=== PATIENT | female | born 1940 | race Caucasian/White ===

== ENCOUNTER 2016-07-07 10:58 | Outpatient (CLI) | payer OTHER ==
[2013-11-05 04:48] VITALS: BMI 25.8
== END 2016-07-07 10:59 ==
LOC: AMBL 10:58
PROVIDERS: ATTEND Emergency Medicine
DX: R11.2 Nausea with vomiting, unspecified (principal); R19.7 Diarrhea, unspecified; K92.1 Melena; N39.0 Urinary tract infection, site not specified; R10.30 Lower abdominal pain, unspecified

== ENCOUNTER 2017-10-08 17:27 | Emergency (ER) | payer OTHER ==
[2017-10-08 17:45] VITALS: BP 167/77; TEMP 97.2; BMI 22.4
--- NOTE | 2017-10-08 18:06 | ED.PDOC ---
General ED Provider: Dr. CARITO SANCHEZ Chief Complaint: Bite Stated Complaint: wasp sting right hand edema of 3rd and 4th finger Time Seen by Physician: 17:30 Mode of Arrival: Walk-In Information Source: Patient Exam Limitations: No limitations Nursing and Triage Documentation Reviewed and Agree: Yes Does patient meet sepsis criteria?: Yes If yes, has appropriate treatment been initiated?: No System Inflammatory Response Syndrome: Not Applicable Sepsis Protocol: For patient's 13 years and over: Temp is 96.8 and below OR 101 and greater Pulse >90 BPM Resp >20/minute Acutely Altered Mental Status Are patient's symptoms suggestive of a new infection, such as: -Pneumonia -Skin, Soft Tissue -Endocarditis -UTI -Bone, Joint Infection -Implantable Device -Acute Abdominal Infection -Wound Infection -Meningitis -Blood Stream Catheter Infection -Unknown Trauma/Injury Complaint Exam - Bite Injury Complaint/Exam Location of Bite: right hand wasp sting Bite Occured: 2 hours ago the rings on 3rd and 4t finger needs to be cut Symptoms Are: Still present Initial Severity: Moderate Current Severity: Moderate Character: Reports: Puncture Aggravating: Reports: None Alleviating: Reports: None Associated Signs and Symptoms: Reports: Erythema, Swelling. Denies: Fever, Drainage, Lymphadenopathy, Numbness, Tingling, Limited ROM Related History: Reports: Unprovoked Animal Available for Observation: No Animal Control Notified: No Infection/Sepsis Risk Factors: Present: None Drainage: Present: None Review of Systems - Review Of Systems Constitutional: Reports: No symptoms Eyes: Reports: No symptoms Ears, Nose, Mouth, Throat: Reports: No symptoms Respiratory: Reports: No symptoms Cardiac: Reports: No symptoms GI: Reports: No symptoms : Reports: No symptoms Musculoskeletal: Reports: Other (edema of right hand ) Skin: Reports: No symptoms Neurological: Reports: No symptoms Endocrine: Reports: No symptoms Hematologic/Lymphatic: Reports: No symptoms All Other Systems: Reviewed and Negative Past Medical History - Past Medical History Previously Healthy: Yes Endocrine: Reports: None Cardiovascular: Reports: None Respiratory: Reports: None Hematological: Reports: None Gastrointestinal: Reports: None Genitourinary: Reports: None Neuro/Psych: Reports: None Musculoskeletal: Reports: None Cancer: Reports: None Last Menstrual Period: 1999 - Surgical History General Surgical History: Reports: None - Family History Family History: Reports: None - Social History Smoking Status: Former smoker Hx Substance Use: No Alcohol Screening: None - Immunizations Tetanus Shot up to Date: Yes Physical Exam - Physical Exam Appearance: Well-appearing, No pain distress, Well-nourished Eyes: WENDY, EOMI, Conjunctiva clear ENT: Ears normal, Nose normal, Oropharynx normal Respiratory: Airway patent, Breath sounds clear, Breath sounds equal, Respirations nonlabored Cardiovascular: RRR, Pulses normal, No rub, No murmur GI/: Soft, Nontender, No masses, Bowel sounds normal, No Organomegaly Musculoskeletal: Edema (right hand markedly swollen 3rd and4th digits ) Skin: Warm, Dry, Normal color Neurological: Sensation intact, Motor intact, Reflexes intact, Cranial nerves intact, Alert, Oriented Psychiatric: Affect appropriate, Mood appropriate Procedures - Additional Procedures Additional Procedures: Other (rings of the 3rd and 4th finger had to be cut due to edema of the involved fingers ) Critical Care Note - Critical Care Note Total Time (mins): 0 Course - Course Vital Signs: Temp Pulse Resp BP Pulse Ox 10/08/17 17:27 97.2 F L 84 16 167/77 H 95 Departure - Departure Time of Disposition: 18:07 Disposition: HOME SELF-CARE Discharge Problem: Wasp sting Qualifiers: Encounter type: initial encounter Instructions: Insect Bite or Sting (ED) Condition: Good Pt referred to PMD for follow-up: Yes IPMP verified?: No Additional Instructions: Please call your Family Physician as soon as possible to schedule a follow-up appointment. Allergies/Adverse Reactions: Allergies strawberry [Odell] Adverse Reaction (Verified 10/08/17 17:48) Sulfa (Sulfonamide Antibiotics) Adverse Reaction (Verified 10/08/17 17:48) Home Medications: Ambulatory Orders 1 [Unobtainable] 11/05/13
[2017-10-08] MEDS ORDERED: BENADRYL IM STA (18:08)
[2017-10-08] MEDS ORDERED: DECADRON 4 MG/ML SDV IM STA (18:08)
[2017-10-08] MEDS ORDERED: BENADRYL PO STA ×2 (18:09→18:12)
[2017-10-08] MEDS ORDERED: PREDNISONE PO STA (18:09)
== END 2017-10-08 18:30 | disposition home or self-care (01) ==
LOC: ED 17:27
DX: T63.461A Toxic effect of venom of wasps, accidental (unintentional), initial encounter (principal); R60.0 Localized edema; S60.442A External constriction of right middle finger, initial encounter; S60.444A External constriction of right ring finger, initial encounter; W49.04XA Ring or other jewelry causing external constriction, initial encounter
CPT/HCPCS: 99282

== ENCOUNTER 2018-06-09 11:24 | Emergency (ER) | payer OTHER ==
[2018-06-09 11:35] VITALS: BP 112/69; TEMP 98.5; BMI 20.3
--- NOTE | 2018-06-09 11:48 | ED.PDOC ---
General ED Provider: Dr. GUNNER PITT Chief Complaint: Syncope Stated Complaint: Feels weak and dizzy. Almost passed out especially when she stands up. Symptoms resolved when lying down. Has episodes where she spits up yellow phlebm Time Seen by Physician: 11:45 Mode of Arrival: Wheelchair Information Source: Patient Exam Limitations: No limitations Primary Care Provider: ADRIANA KRAMER Nursing and Triage Documentation Reviewed and Agree: Yes Does patient meet sepsis criteria?: No System Inflammatory Response Syndrome: Not Applicable Sepsis Protocol: For patient's 13 years and over: Temp is 96.8 and below OR 101 and greater Pulse >90 BPM Resp >20/minute Acutely Altered Mental Status Are patient's symptoms suggestive of a new infection, such as: -Pneumonia -Skin, Soft Tissue -Endocarditis -UTI -Bone, Joint Infection -Implantable Device -Acute Abdominal Infection -Wound Infection -Meningitis -Blood Stream Catheter Infection -Unknown Review of Systems - Review Of Systems Constitutional: Reports: Malaise Eyes: Reports: No symptoms Ears, Nose, Mouth, Throat: Reports: No symptoms Respiratory: Reports: Cough Cardiac: Reports: No symptoms GI: Reports: No symptoms : Reports: No symptoms Musculoskeletal: Reports: No symptoms Skin: Reports: No symptoms Neurological: Reports: No symptoms Endocrine: Reports: No symptoms Hematologic/Lymphatic: Reports: No symptoms All Other Systems: Reviewed and Negative Past Medical History - Past Medical History Previously Healthy: Yes Endocrine: Reports: None Cardiovascular: Reports: None Respiratory: Reports: None Hematological: Reports: None Gastrointestinal: Reports: None Genitourinary: Reports: None Neuro/Psych: Reports: None Musculoskeletal: Reports: None Cancer: Reports: None Last Menstrual Period: N/A - Surgical History General Surgical History: Reports: None - Family History Family History: Reports: None - Social History Smoking Status: Former smoker Hx Substance Use: No Alcohol Screening: None Physical Exam - Physical Exam Appearance: Well-appearing, Thin Ill-appearing: None Pain Distress: None Eyes: WENDY, EOMI, Conjunctiva clear ENT: Ears normal, Nose normal, Oropharynx normal Neck: Supple Respiratory: Airway patent, Breath sounds clear, Breath sounds diminished, Respirations nonlabored Cardiovascular: RRR, Pulses normal, No rub, No murmur GI/: Soft, Nontender, No masses, No Organomegaly, Bowel sounds hypoactive Musculoskeletal: Normal strength, ROM intact, No edema, No calf tenderness Skin: Warm, Dry, Normal color Neurological: Sensation intact, Motor intact, Reflexes intact, Cranial nerves intact, Alert, Oriented Psychiatric: Affect appropriate, Mood appropriate Interpretation - Radiology Interpretation Radiology Interpretation By: Radiologist Exam Interpreted: Portable CXR (RT MIDDLE AND LOWER LOBE HAZZINESS), CT Scan ( HEAD-WNL) Critical Care Note - Critical Care Note Total Time (mins): 0 Course - Course Hematology/Chemistry: 06/09/18 11:44 06/09/18 11:55 Orders, Labs, Meds: Lab Review 06/09/18 06/09/18 06/09/18 11:44 11:55 13:50 WBC 8.48 RBC 4.39 Hgb 13.4 Hct 39.9 MCV 90.9 MCH 30.5 MCHC 33.6 RDW Coeff of Marco 13.2 Plt Count 274 Immature Gran % (Auto) 0.4 Neut % (Auto) 72.6 Lymph % (Auto) 8.3 L Mason % (Auto) 18.0 H Eos % (Auto) 0.1 Baso % (Auto) 0.6 Immature Gran # (Auto) 0.0 Neut # (Auto) 6.2 Lymph # (Auto) 0.7 Mason # (Auto) 1.5 Eos # (Auto) 0.0 Baso # (Auto) 0.1 Sodium 134.5 Potassium 3.45 L Chloride 94.8 L Carbon Dioxide 30.0 Anion Gap 13.15 BUN 17.0 Creatinine 1.40 H Estimated GFR (MDRD) 36.00 BUN/Creatinine Ratio 12.14 Glucose 115.5 H Calcium 8.98 Magnesium 1.65 Total Bilirubin 0.65 AST 30.9 ALT 13.5 Alkaline Phosphatase 100.1 Total Creatine Kinase 39.5 Total Protein 7.64 Albumin 4.45 Globulin 3.19 Albumin/Globulin Ratio 1.39 Urine Color Yellow Urine Clarity Slightly Urine pH 5.5 Ur Specific [place] 1.025 Urine Protein 2+ Urine Glucose (UA) Negative Urine Ketones Negative Urine Blood Trace-lysed Urine Nitrite Negative Urine Bilirubin 1+ Urine Urobilinogen 0.2 Ur Leukocyte Esterase 2+ Urine Microscopic RBC 2-5 Urine Microscopic WBC 30-50 Ur Squamous Epith Cells Not present Ur Transition Epith Cell 2-5 Urine Bacteria 2+ Orders Category Date Time Status EKG-(ED ONLY) Stat CARDIO 06/09/18 11:44 Completed CBC W/ AUTO DIFF Stat LAB 06/09/18 11:44 Completed COMPREHENSIVE METABOLIC PANEL Stat LAB 06/09/18 11:55 Completed CPK [CREATINE KINASE] Stat LAB 06/09/18 11:55 Completed FLU A & B MOLECULAR [FLU A/B MOLECULAR] Stat LAB 06/09/18 14:20 Received MAGNESIUM Stat LAB 06/09/18 11:55 Completed UA [URINALYSIS C & S IF INDICATED] Stat LAB 06/09/18 13:50 Completed URINE CULTURE Stat LAB 06/09/18 13:50 Received CHEST, 1V AP ONLY Stat RADS 06/09/18 11:[address] HEAD W/O CONTRAST Stat RADS 06/09/18 13:16 Completed Vital Signs: Temp Pulse Resp BP Pulse Ox 06/09/18 11:24 98.5 F 65 20 112/69 94 L JASON Risk Score JASON Risk Score: Risk Score Odds of by 30D 0 0.1 (0.1-0.2) 1 0.3 (0.2-0.3) 2 0.4 (0.3-0.5) 3 0.7 (0.6-0.9) 4 1.2 (1.0-1.5) 5 2.2 (1.9-2.6) 6 3.0 (2.5-3.6) 7 4.8 (3.8-6.1) Departure - Departure Time of Disposition: 14:15 Disposition: STILL A PATIENT Discharge Problem: Dizziness, URI (upper respiratory infection), UTI (urinary tract infection) Discharge Problem: (Ruled Out): Acute UTI (urinary tract infection) Instructions: Upper Respiratory Infection (ED), Dizziness (ED) Condition: Good Pt referred to PMD for follow-up: Yes (1 WK) IPMP verified?: No Additional Instructions: STAY WELL DYDRATED TAKE ALL ANTIBIOTICS TAKE TYLENOL OR ADVIL FOR PAIN OR TEMPERATURE ELEVATION ABOVE 101 FOLLOW UP PCP 7-10 DAYS AVOID SUDDEN CHANGES IN POSITION, IF FEELING DIZZY SIT DOWN AND AVOID DRIVING Allergies/Adverse Reactions: Allergies strawberry [Garrison] Adverse Reaction (Verified 06/09/18 11:30) Sulfa (Sulfonamide Antibiotics) Adverse Reaction (Verified 06/09/18 11:30) Home Medications: Ambulatory Orders Gabapentin 100 mg PO TID 06/09/18 Nadolol 20 mg PO DAILY 06/09/18 Nitrofurantoin Monohyd/M-Cryst [Macrobid 100 mg Capsule] 100 mg PO BID #20 capsule 06/09/18 Pantoprazole Sodium [Protonix] 40 mg PO DAILY 06/09/18 Tramadol HCl [Ultram] 50 mg PO Q8H PRN 06/09/18 Triamterene/Hydrochlorothiazid [Triamterene-Hctz 37.5-25 mg Cp] 1 each PO DAILY 06/09/18 Disposition Discussed With: Patient Respiratory Complaint Exam - Respiratory Complaint/Exam Symptoms Are: Still present Timing: Intermittent Initial Severity: Moderate Current Severity: Mild Location: Throat Character: Reports: Productive cough Aggravating: Reports: None Alleviating: Reports: Upright position Associated Signs and Symptoms: Reports: Dizziness, URI, Nasal congestion Related History: Denies: Similar episode History of Healthcare-Acquired Pneumonia: No Related Surgical History: Reports: None Pulmonary Embolism Risk Factors: None Cardiac Risk Factors: Reports: None Pseudomonas Risk Factors: Reports: None Tuberculosis Risk Factors: Reports: None Status Asthmaticus Risk Factors: Reports: None Home Oxygen Use: No Recent Stress Test: No Recent Echo/LV Function: No Current Antibiotic Use: No Current Asthma Medication Use: No Respiratory Distress: None Inadequate Respiratory Effort: No Dysphagia Present: No Stridor Present: No JVD Present: No Retractions: Not Present Diminished Breath Sounds: Yes (RT LOWER CHES) Sinus Tenderness: None Grunting Respirations: No Kussmaul Respirations: No Differential Diagnoses: URI, Influenza Neurological Complaint Exam - Dizziness Complaint/Exam Onset: Gradual Symptoms Are: Resolved Timing: Intermittent Episodes Lasting: Seconds Initial Severity: Moderate Current Severity: Mild Character: Reports: Lightheaded, Weak, Dizzy Aggravating: Reports: Position change Alleviating: Reports: Rest, Lying down Associated Signs and Symptoms: Denies: Nausea, Vomiting, Diaphoresis, Tinnitus, Chest pain, Short of air, Palpitations, Unsteady gait, GI blood loss, Visual changes, Decreased oral intake, Change in medication, Change in diet, OTC meds, Loss of balance Cardiac Risk Factors: Reports: None CVA Risk Factors: Reports: None Related Surgical History: Reports: None JVD Present: No Carotid Bruit Present: No Nystagmus Present: No Gag Reflex Present: Yes Meningeal Signs Positive: No Focal Weakness: Present: None Focal Sensory Loss: Present: None Gait: Unsteady [id number]: Normal Findings Romberg Test Positive: No Babinski Sign: Negative Right, Negative Left Differential Diagnoses: Anxiety, Labyrinthitis, Vasovagal reaction
--- NOTE | 2018-06-09 13:43 | CT ---
EXAM: CT of the head without contrast History: Dizziness, unsteady gait, lightheaded Technique: Multiplanar CT images through the head were obtained without the administration of IV con trast Findings: The visualized paranasal sinuses and mastoid air cells are clear in general. No acute matthew varial abnormalities. Intracranially the ventricular and cisternal spaces are normal in size, shape and configuration for a patient of this age. No dominant mass or midline shift. No hydrocephalous. Atherosclerotic vascul ar calcifications. Periventricular and subcortical white matter hypodensities. No acute intracrania l hemorrhage or abnormal extraaxial fluid collections. Impression: 1. No acute intracranial process. 2. Chronic small vessel ischemic disease
--- NOTE | 2018-06-09 13:52 | DI ---
EXAM: Chest one view HISTORY: Dizziness, cough, yellow congestion COMPARISON: None TECHNIQUE: Single view of the chest was performed FINDINGS: Hazy opacity right mid lung and right lung base. There is no pleural effusion or pneumoth orax. The heart is normal in size. The mediastinal contour is normal. There are no acute abnormali ties of the bones. IMPRESSION: Hazy opacity right mid lung and right lung base, could represent pneumonia and/or atelec tasis. Recommend follow-up PA and lateral chest radiographs to resolution. Report faxed
== END 2018-06-09 15:15 | disposition still patient (30) ==
LOC: ED 11:24
DX: R55 Syncope and collapse (principal); R53.1 Weakness; R42 Dizziness and giddiness; R53.81 Other malaise; R05 Cough; J06.9 Acute upper respiratory infection, unspecified; N39.0 Urinary tract infection, site not specified; R09.81 Nasal congestion; J11.1 Influenza due to unidentified influenza virus with other respiratory manifestations
CPT/HCPCS: 36415; 80053; 81001; 82550; 83735; 85025; 87086; 87502; 93005; 93010; 99283